=== PATIENT | male | born 1965 | race Caucasian/White ===

== ENCOUNTER 2018-01-20 12:47 | Emergency (ER) | payer OTHER ==
[~2018-01-20] VITALS: Ht 177.8 cm; Wt 111.3 kg
[~2018-01-20 12:47] MED LIST: IBUPROFEN200 M1 PO; MOTRIN800 MG PO
[2018-01-20 14:11] LABS: HEMATOCRIT 46.9 % (38.0-50.0); HEMOGLOBIN 15.9 G/DL (12.5-16.6); MCH 30.8 PG (29.0-34.0); MCHC 33.9 G/DL (30.0-36.0); MCV 90.9 FL (86-99); PLATELET COUNT 304 K/uL (156-360); RBC DIS.WIDTH-CV 12.6 % (11.8-14.6); RBC DIS.WIDTH-SD 41.8 % (39-53); RED BLOOD COUNT 5.16 M/uL (4.00-5.50); WHITE BLOOD COUNT 8.8 K/uL (4.1-10.2)
[2018-01-20 14:23] LABS: CHLORIDE 108 mEq/L (99-109); POTASSIUM 5.2 mEq/L (3.7-5.4); SODIUM 144 mEq/L (136-147)
[2018-01-20 14:24] LABS: GLUCOSE 100 mg/dL (70-99)
[2018-01-20 14:28] LABS: CREATININE 1.1 mg/dL (0.6-1.3); GFR ESTIMATE (CALCULATED) > 59 mL/min/ (58.99-99999)
[2018-01-20 14:29] LABS: UREA NITROGEN (BUN) 13 mg/dL (9-23)
[2018-01-20 14:38] LABS: TROP-I INTERPRETATION NEGATIVE; TROPONIN-I 0.02 ng/mL (0.0-0.30)
[2018-01-20 15:23] LABS: MAGNESIUM 2.3 mg/dL (1.3-2.7)
[2018-01-20] MEDS ORDERED: PREDNISONE20 MG PO (15:31)
[2018-01-20] MEDS ORDERED: ZITHROMAX Z-PA250 MG PO (15:31)
[2018-01-20 15:56] VITALS: BP 141/104
== END 2018-01-20 15:57 | disposition home or self-care (01) ==
LOC: EME 12:47
DX: J01.90 Acute sinusitis, unspecified (principal); I49.3 Ventricular premature depolarization; F32.9 Major depressive disorder, single episode, unspecified
CPT/HCPCS: 71046; 80048; 83735; 84484; 85027; 93005; 99281; 99284